=== PATIENT | female | born 1930 | race Hispanic/Latino ===

== ENCOUNTER 2020-05-11 19:54 | Emergency (ER) | payer MEDICARE ==
[~2020-05-11] VITALS: Ht 152.4 cm; Wt 49.9 kg
[2020-05-11] MEDS ORDERED: ACETAMINOPHEN 325 MG TAB PO ONE (20:15)
[2020-05-11] MEDS ORDERED: CEFTRIAXONE SOD 1 GM/50 ML BAG IV ONE (20:15)
[2020-05-11] MEDS ORDERED: SODIUM CHLORIDE 0.9% 1000ML 1,000 ML IV SCH (20:15)
[2020-05-11] MEDS ORDERED: CEFTRIAXONE SOD 1 GM in SODIUM CHLORIDE 0.9% 50ML 50 ML IV ONE (20:30)
[2020-05-11 20:54] LABS: BASOPHILS % 0.1 % (0.0-1.0); HEMATOCRIT 44.5 % (34.2-44.1); HEMOGLOBIN 15.2 g/dL (12.0-16.0); LYMPHOCYTES # (AUTO) 0.7 (1.0-3.2); LYMPHOCYTES % 9.2 % (18.0-39.1); MEAN CORPUSCULAR HEMOGLOBIN 29.1 pg (28-32); MEAN CORPUSCULAR HGB CONC 34.2 g/dL (31-35); MEAN CORPUSCULAR VOLUME 85.2 fL (81-99); MONOCYTES # (AUTO) 0.8 (0.2-0.8); MONOCYTES % 11.2 % (4.4-11.3); NEUTROPHILS # (AUTO) 5.6 (2.1-6.9); NEUTROPHILS % 78.9 % (38.7-80.0); PLATELET COUNT 176 x10e3/uL (140-360); RED BLOOD COUNT 5.22 x10e6/uL (3.6-5.1); RED CELL DISTRIBUTION WIDTH 12.2 % (11.7-14.4)
[2020-05-11 21:06] LABS: ALBUMIN/GLOBULIN RATIO 0.7 (0.8-2.0); CREATININE, SERUM 1.27 mg/dL (0.57-1.11)
[2020-05-11] MEDS ORDERED: ACETAMINOPHEN 650 MG SUPP PR ONE (21:27)
[2020-05-11] MEDS ORDERED: ACETAMINOPHEN 325 MG SUPP PR ONE (21:30)
[2020-05-11] MEDS ORDERED: SODIUM CHLORIDE 0.9% 1000ML 1,000 ML IV ONE (21:30)
[2020-05-11 21:32] LABS: LEUKOCYTE ESTERASE ,URINE TRACE (NEGATIVE); NITRITE,URINE POSITIVE (NEGATIVE)
[2020-05-11 21:33] LABS: CLARITY,URINE HAZY (CLEAR); COLOR,URINE STRAW (YELLOW); KETONES,URINE TRACE (NEGATIVE); PROTEIN,URINE DIPSTICK >=300 (NEGATIVE); URINE UROBILINOGEN 1 mg/dL (0.2 - 1)
[2020-05-11 21:44] LABS: BACTERIA,URINE MANY /HPF
[2020-05-11] MEDS ORDERED: DECADRON4 M1 PO (23:01)
[2020-05-11] MEDS ORDERED: KEFLEX125 MG/5 M PO (23:08)
[2020-05-12 01:23] VITALS: BP 95/72
== END 2020-05-12 01:26 | disposition home or self-care (01) ==
LOC: ER 20:02
DX: U07.1 COVID-19 (principal); R50.9 Fever, unspecified; N39.0 Urinary tract infection, site not specified; R19.7 Diarrhea, unspecified; G30.9 Alzheimer's disease, unspecified; F02.80 Dementia in other diseases classified elsewhere, unspecified severity, without behavioral disturbance, psychotic disturbance, mood disturbance, and anxiety
CPT/HCPCS: 36415; 70450; 71045; 80053; 81001; 83605; 85025; 87040; 87086; 99284; J0696; J7030; U0002; 87186

== ENCOUNTER 2020-05-14 06:13 | Emergency (ER) | payer MEDICARE ==
[~2020-05-14] VITALS: Ht 152.4 cm; Wt 49.9 kg
[~2020-05-14 06:13] MED LIST: DECADRON4 M1 PO; KEFLEX125 MG/5 M PO
[2020-05-14] MEDS ORDERED: HALOPERIDOL LACTATE 5 MG/ML VIAL IV ONE (06:30)
[2020-05-14] MEDS ORDERED: CEFTRIAXONE SOD 1 GM/50 ML BAG IV ONE (06:30)
[2020-05-14] MEDS ORDERED: ACETAMINOPHEN 325 MG SUPP ONE (06:35)
[2020-05-14] MEDS ORDERED: CEFTRIAXONE SOD 1 GM in DEXTROSE 5% 50ML 50 ML IV ONE (06:45)
[2020-05-14 06:59] LABS: BASOPHILS % 0.2 % (0.0-1.0); HEMOGLOBIN 14.8 g/dL (12.0-16.0); LYMPHOCYTES # (AUTO) 1.2 (1.0-3.2); LYMPHOCYTES % 10.9 % (18.0-39.1); MEAN CORPUSCULAR HEMOGLOBIN 29.5 pg (28-32); MEAN CORPUSCULAR HGB CONC 34.4 g/dL (31-35); MEAN CORPUSCULAR VOLUME 85.8 fL (81-99); MONOCYTES # (AUTO) 0.6 (0.2-0.8); MONOCYTES % 5.8 % (4.4-11.3); NEUTROPHILS % 82.5 % (38.7-80.0); PLATELET COUNT 203 x10e3/uL (140-360); RED BLOOD COUNT 5.01 x10e6/uL (3.6-5.1); RED CELL DISTRIBUTION WIDTH 12.4 % (11.7-14.4)
[2020-05-14] MEDS ORDERED: CEFTRIAXONE SOD 1 GM VIAL ONE (07:10)
[2020-05-14] MEDS: ACETAMINOPHEN 650 MG SUPP PR PRN ×2 (07:10→07:12)
[2020-05-14] MEDS ORDERED: SODIUM CHLORIDE 0.9% 50ML 50 ML ONE (07:11)
[2020-05-14] MEDS ORDERED: ACETAMINOPHEN 325 MG SUPP PR ONE (07:15)
[2020-05-14] MEDS ORDERED: LACTATED RINGER'S 1,000 ML INJ ONE (07:30)
[2020-05-14 08:36] LABS: ALBUMIN 2.5 g/dL (3.5-5.0); ALBUMIN/GLOBULIN RATIO 0.6 (0.8-2.0); ANION GAP 16.8 mmol/L (8-16); CALCIUM 8.1 mg/dL (8.4-10.2); CREATININE, SERUM 0.98 mg/dL (0.57-1.11); POTASSIUM 3.8 mmol/L (3.5-5.1)
[2020-05-14] MEDS ORDERED: DOXYCYCLINE 100MG/NS 100ML 100 ML IV ONE (09:00)
== END 2020-05-14 11:46 | disposition other institution (70) ==
LOC: ER 06:45
DX: U07.1 COVID-19 (principal); R50.9 Fever, unspecified; N39.0 Urinary tract infection, site not specified; R19.7 Diarrhea, unspecified; E11.65 Type 2 diabetes mellitus with hyperglycemia; I10 Essential (primary) hypertension; E78.5 Hyperlipidemia, unspecified
CPT/HCPCS: 36415; 71045; 80053; 83605; 84484; 85025; 87040; 99284; J0696; J1630; J7121; U0002